=== PATIENT | female | born 1945 | race Caucasian/White ===

== ENCOUNTER 2019-05-06 07:07 | Outpatient (CLI) | payer MEDICARE, OTHER ==
[~2019-05-06] VITALS: Ht 162.6 cm; Wt 97.6 kg
[2019-05-06 07:41] VITALS: BP 151/61; Ht 162.6 cm; Wt 97.6 kg
[2019-05-06] MEDS ORDERED: TESSALON PERLE100 MG PO (07:47)
[2019-05-06] MEDS ORDERED: ZYLOPRIM300 MG PO (07:47)
[2019-05-06] MEDS ORDERED: BACLOFEN10 MG PO (07:47)
[2019-05-06] MEDS ORDERED: ASPIRIN81 MG PO (07:47)
[2019-05-06] MEDS ORDERED: TOPROL XL25 MG PO (07:48)
[2019-05-06] MEDS ORDERED: CENTRUM SILVER1 EAC3 PO (07:48)
[2019-05-06] MEDS ORDERED: BUMEX2 MG PO (07:48)
[2019-05-06] MEDS ORDERED: ENTRESTO 24 MG1 EACH PO (07:48)
[2019-05-06] MEDS ORDERED: OMEPRAZOLE20 M1 PO (07:49)
[2019-05-06] MEDS ORDERED: ALDACTONE25 MG PO (07:49)
[2019-05-06] MEDS ORDERED: TAMOXIFEN CITRA20 MG PO (07:49)
[2019-05-06] MEDS ORDERED: TRAZODONE HCL150 MG PO (07:49)
[2019-05-06 07:56] LABS: ANION GAP 10.8 mmol/L (8-16); CALCIUM 8.6 mg/dL (8.5-10.1); CARBON DIOXIDE 30.5 mmol/L (21.0-32.0); CREATININE - SERUM 1.4 mg/dL (0.6-1.3); POTASSIUM - SERUM 3.3 mmol/L (3.5-5.1)
--- NOTE | 2019-05-06 09:15 | NUR ---
0815 IV HAS BEEN STARTED TO LEFT AC X1 ATTEMPT WITH 22G IV CATH. DOBUTREX AND BUMEX DRIPS STARTED VIA PUMP PER ORDERS. PT ON COTTON WEIGHER, STARTING VSS- RIGHT BP - 102/85, HR IS 82, RESP WITH EASE ON ROOM AIR. PT STATES SHE HAS EATEN BREAKFAST THIS AM PRIOR TO ARRIVAL AND DENIES NEEDS AT THIS TIME. CALL LIGHT IN REACH, NO FAMILY AT BEDSIDE.
--- NOTE | 2019-05-06 09:19 | NUR ---
PT HAS VOIDED USING BSC, DENIES NEEDS AT THIS TIME. SINUS RHYTHM WITH OCCASIONAL PVC'S, DENIES ANY C/O CHEST PAIN. CALL LIGHT IN REACH.
--- NOTE | 2019-05-06 09:35 | NUR ---
PT SITITNG UP IN BED, DENIES ANY C/O CHEST PAIN, BP IS 126/58, HR 78. RESP WITH EASE ON ROOM AIR. CALL LIGHT IN REACH.
--- NOTE | 2019-05-06 10:16 | NUR ---
PT HAS VOIDED 400 CC CLEAR YELLOW URINE TO BS, DENIES ANY C/O. VSS, CALL LIGHT IN REACH.
--- NOTE | 2019-05-06 11:03 | NUR ---
PT HAS VOIDED 450 CC CLEAR YELLOW URINE TO [facility] [place] [facility], DENIES ANY C/O. VSS, IV MEDS INFUSING VIA PUMP PER ORDERS.
--- NOTE | 2019-05-06 12:16 | NUR ---
PT VOIDED 800 CC CLEAR YELLOW URINE TO BSC. DENIES ANY C/O. HAS KIKO LUNCH TRAY WITH NO C/O NAUSEA.
--- NOTE | 2019-05-06 13:33 | NUR ---
PT VOIDED 200 CC CLEAR YELLOW URINE TO BSC, DENIES ANY C/O OR NEEDS AT THIS TIME.
--- NOTE | 2019-05-06 15:13 | NUR ---
PT VOIDED 250 CC CLEAR YELLOW URINE TO BSC, DENIES ANY NEEDS AT THIS TIME. VSS, CALL LIGHT IN REACH.
--- NOTE | 2019-05-06 16:04 | NUR ---
VOIDED 200 CC CLEAR YELLOW URINE TO BSC, PT IS ALERT AND DENIES ANY C/O. INFUSION COMPLETE.
--- NOTE | 2019-05-06 16:38 | NUR ---
PT HAS VOIDED 250 CC CLEAR YELLOW URINE TO BSC, IV DC'D WITH CATH INTACT AND PT IS DRESSING FOR DC TO HOME.
--- NOTE | 2019-05-06 16:42 | NUR ---
POST INFUSION WEIGHT IS 212.4 POUNDS. PT ALERT AND DENIES ANY C/O. PT ESCORTED TO PRIVATE AUTO VIA WC BY NURSE WITH DRIVING HER HOME. PT IS ALERT AND DENIES ANY C/O UPON DC TO HOME. HAS JEREMIAH PERSONAL BELONGINGS,
== END 2019-05-06 16:50 | disposition home or self-care (01) ==
LOC: D.CATH 07:07
PROVIDERS: ATTEND Internal Medicine Interventional Cardiology
DX: I50.9 Heart failure, unspecified (principal); I42.9 Cardiomyopathy, unspecified

== ENCOUNTER 2019-05-25 06:58 | Outpatient (CLI) | payer MEDICARE, OTHER ==
[~2019-05-25] VITALS: Ht 162.6 cm; Wt 93.9 kg
[~2019-05-25 06:58] MED LIST: ALDACTONE25 MG PO; ASPIRIN81 MG PO; BACLOFEN10 MG PO; BUMEX2 MG PO; CENTRUM SILVER1 EAC3 PO; ENTRESTO 24 MG1 EACH PO; OMEPRAZOLE20 M1 PO; TAMOXIFEN CITRA20 MG PO; TESSALON PERLE100 MG PO; TOPROL XL25 MG PO; TRAZODONE HCL150 MG PO; ZYLOPRIM300 MG PO
--- NOTE | 2019-05-25 07:35 | NUR ---
PT PLACED ON MONITORS. IV STARTED W 22 GAUGE IN L UPPER ARM PER Hanna KINSEY RN. DOBUTREX AND BUMEX DRIP STARTED VIA PUMP PER ORDERS. ASSESSMENT COMPLETED. 02 ON VIA NC AT 3L, O2 SAT 90. CALL LIGHT IN REACH, DENIES OTHER NEEDS AT THIS TIME.
[2019-05-25 07:39] VITALS: BP 133/80; Ht 162.6 cm; Wt 93.9 kg
[2019-05-25 07:55] LABS: BASOPHILS 0.1 % (0-2); EOSINOPHILS 0.2 % (0-7); HEMATOCRIT 32.7 % (36.0-48.0); HEMOGLOBIN 10.6 g/dL (12-16); IMMATURE GRANULOCYTES 0.2 % (0-5); LYMPHOCYTES 4.8 % (15-50); MCH 29.8 pg (26.0-34.0); MCHC 32.4 g/dL (31.0-37.0); MCV 91.9 fL (80.0-100.0); MEAN PLATELET VOLUME 10.7 fL (7.4-10.4); NEUTROPHILS 87.7 % (40-80); PLATELET COUNT 156 10x3/uL (130-400); RBC 3.56 10x6/uL (4.00-5.40); RDW 16.5 % (11.5-14.5); WBC 13.5 10x3/uL (4.8-10.8)
[2019-05-25 08:07] LABS: ANION GAP 14.1 mmol/L (8-16); CALCIUM 8.9 mg/dL (8.5-10.1); CARBON DIOXIDE 26.7 mmol/L (21.0-32.0); CREATININE - SERUM 1.9 mg/dL (0.6-1.3); POTASSIUM - SERUM 3.8 mmol/L (3.5-5.1)
--- NOTE | 2019-05-25 08:18 | NUR ---
BREAKFAST TRAY SERVED. BP 116/48, HR 87, 02 SAT 94. PT DENIES NEEDS AT THIS TIME. CALL LIGHT IN REACH
--- NOTE | 2019-05-25 09:00 | NUR ---
PT SITTING UP IN BED, BP 124/80, HR 79, O2 SAT 97. PT FINISHED BREAKFAST TRAY, DENIES NEEDS AT THIS TIME. CALL LIGHT IN REACH.
--- NOTE | 2019-05-25 10:12 | NUR ---
PT RESTING SITTING UP IN BED. IV INFUSING VIA PUMP. BP 116/75, HR 77, 02 SAT 94%. AT BEDSIDE, CALL LIGHT IN REACH.
--- NOTE | 2019-05-25 10:23 | NUR ---
DR. DILLARD'S NURSE DUNCAN CALLED WITH [facility]AT[facility] LAB RESULT OF 1.9. SHE WILL RELAY THE INFORMATION TO DR.ST PAUL AND CALL BACK WITH ANY ORDERS.
--- NOTE | 2019-05-25 10:30 | NUR ---
[place] HAT EMPTIED OF 200CC URINE. BED LINEN CHANGED, PT BACK TO BED. BP 116/75, HR 81. CALL LIGHT IN REACH, AT BEDSIDE.
--- NOTE | 2019-05-25 11:24 | NUR ---
PT RESTING IN BED, IV INFUSING VIA PUMP PER ORDERS. REPOSITIONED PT FOR BACK DISCOMFORT. BP 128/65, HR 83, O2 SAT 93 ON 3L/NC. CALL LIGHT IN REACH, DENIES NEEDS AT THIS TIME.
--- NOTE | 2019-05-25 12:15 | NUR ---
PT SITTING UP ON SIDE OF BED, STATES BACK IS HURTING. 200CC URINE EMPTIED FROM BEDSIDE COMMODE. LUNCH TRAY ORDERED, PT DENIES ANY OTHER NEEDS AT THIS TIME.
--- NOTE | 2019-05-25 12:51 | NUR ---
PT FINISHED W LUNCH TRAY, VOIDED 200 CC IN [facility]. SHE IS ALSO HAVING LOOSE STOOLS. SHE IS SITTING UP ON SIDE OF BED, STATES IT HELPS HER BREATH BETTER. HR 88, BP 130/68, O2 SAT 92. CALL LIGHT IN REACH
--- NOTE | 2019-05-25 13:44 | NUR ---
PT SLEEPING, VSS. AT BEDSIDE. IV INFUSING VIA PUMP PER ORDERS. CALL LIGHT IN REACH
--- NOTE | 2019-05-25 14:08 | NUR ---
PT SITTING UP ON SIDE OF BED, STATES CAN BREATH BETTER THAT WAY. O2 SAT 88, O2 UP TO 4L/NC. BP 137/73, HR 90. IV INFUSING VIA PUMP PER ORDERS.
--- NOTE | 2019-05-25 14:30 | NUR ---
DR. DILLARD AT BEDSIDE. ORDERS RECEIVED TO CONSULT CASE MANAGMENT REGARDING HOME O2. CASE MANAGMENT CALLED TO COME AND SEE PATIENT.
--- NOTE | 2019-05-25 14:42 | NUR ---
150 CC CLEAR YELLOW URINE EMPTIED FROM [facility].
--- NOTE | 2019-05-25 14:42 | NUR ---
CASE MANAGMENT AT BEDSIDE DISCUSSING WITH PATIENT THE HOME O2.
--- NOTE | 2019-05-25 15:01 | NUR ---
[place] HAT EMPTIED, 150CC CLEAR YELLOW URINE. PT STILL HAVING LOOSE STOOLS. 02 SAT 88 ON 4L/NC. ENCOURAGED PT TO DRINK MORE WATER TO HELP WITH INCREASING URINE OUTPUT.
--- NOTE | 2019-05-25 15:53 | NUR ---
IV INFUSION COMPLETED. IV HEPLOCKED. PT TOLERATED PROCEDURE WELL. BP 118/63, HR 81, 02 SAT 94. WAITING ON CASE MANAGEMENT TO GET PORTABLE O2 FOR PT TO TAKE HOME. NO FURTHER OUTPUT AT THIS TIME. WILL MONITOR FOR 30 MIN BEFORE DISCHARGE
--- NOTE | 2019-05-25 16:11 | NUR ---
LUPE AT HOME FOOD PRODUCTION SUPERVISOR AT BEDSIDE, WORKING W PT REGARDING HOME O2 USE.
--- NOTE | 2019-05-25 16:20 | NUR ---
IV REMOVED W CATH INTACT, MONITORS REMOVED. PT WEIGHT 94.1KG/ 207.02LBS. PT UP TO DRESS FOR DISCHARGE. DISCHARGE INSTRUCTIONS REVIEWED.
--- NOTE | 2019-05-25 16:34 | NUR ---
PT DISCHARGED VIA WC TO PRIVATE VEHICLE WITH ALL BELONGINGS.
== END 2019-05-25 16:25 | disposition home or self-care (01) ==
LOC: D.CATH 06:58
PROVIDERS: ATTEND Internal Medicine Interventional Cardiology
DX: I50.9 Heart failure, unspecified (principal)

== ENCOUNTER 2019-05-26 15:59 | Inpatient (IN) | payer MEDICARE, OTHER ==
[2019-05-26] VITALS (16 sets, daily range): BP systolic 109–128; BP diastolic 63–81; BMI 36.4
[~2019-05-26] VITALS: Ht 162.6 cm; Wt 96.0 kg
--- NOTE | ~2019-05-26 | HEMODYNAMI ---
PATIENT:GAVIN SALVADOR MEDICAL RECORD: [id number] : 47 LOCATION:[facility] [id number] ADMISSION DATE: 05/26/19 Generatedon:05/28/201911:38 Patient name: GAVIN SALVADOR Patient #: [id number] SSN: D OB: 1945 Date of study: 05/28/2019 Page: Of Hemodynamic Procedure Report Patient Data Patient Demographics Procedure consent was obtained First Name: GAVIN Gender: Female Last Name: MADELEINE : 1945 Patient #: [id number] Age: 73 year(s) Race: Unknown Additional ID: [id number] Contact details [address]: [address] [place] [address] State: [place] City: [place] Zip code: [address] Past Medical History Allergies Allergen Reaction Date Comments Reported Other allergy 05/28/2019 STATINS, ADHESIVE Admission Admission Data Admission Date: 05/26/2019 Admission Time: 16:52 Room #: D.2308 Weight (lbs.): 211.64 Weight (kg.): 96 Lab Results Lab Result Date: 05/28/2019 Lab Result Time: 0:00 Biochemistry Name Units Result Min Max BUN mg/dl 40 --(----)-* 7 18 Creatinine mg/dl 1.7 --(----)-* 0.6 1.3 eGFR ml/min 31 *-(----)-- 90 120 NONAFRICAN CBC Name Units Result Min Max Hematocrit % 30.1 *-(----)-- 42 54 Hemoglobin g/dl 9.7 *-(----)-- 13.5 17.5 Procedure Procedure Types Cath Procedure Diagnostic Procedure LHC LHC w/Coronaries w/Grafts Procedure Description Procedure Date Procedure Date: 05/28/2019 Procedure Start Time: 11:24 Procedure End Time: 11:35 Procedure Staff Name Function Elroy Villalobos MD Performing Physician Natasha Ramos RT Monitor Jose Luis Marinelli RT Scrub Frances Abdi RT Scrub Brooklyn Mata RN Nurse Procedure Data Cath Procedure Fluoroscopy Diagnostic fluoroscopy Total fluoroscopy Time: 2.1 time: 2.1 min min Diagnostic fluoroscopy Total fluoroscopy dose: 612 dose: 612 mGy mGy Contrast Material Contrast Material Type Amount (ml) Isovue 300 83 Entry Location Entry Primary Successful Side Size Upsize Upsize Entry Closure Succes sful Closure Location (Fr) 1 (Fr) 2 (Fr) Remarks Device Remarks Femoral Right 5 Fr Exoseal artery Estimated blood loss: 5 ml Diagnostic catheters Device Type Used For End Catheter Placement MULTIPACK Pigtail 5 Fr Procedure catheter MULTIPACK JL 4.0 5Fr Procedure catheter MULTIPACK 3DRC 5Fr Procedure catheter DIAGNOSTIC AR2 MOD 5 Fr Procedure catheter ([id number]) Procedure Complications No complications Procedure Medications Medication Administration Route Dosage 0.9% NaCl I.V. 100 ml/hr Oxygen 100 Dobutamine I.V. drip 5 mcg/kg/min (500mg/250ml D5W) Bumex I.V. 1 mg Versed I.V. 2 mg Fentanyl I.V. 50 mcg Versed I.V. 1 mg Hemodynamics Rest HGB: 9.7 (g/dl) Heart Rate: 83 (bpm) Snapshots Pre Cath Intra NCS Post Cath Vital Signs Time Heart Resp SPO2 etCO2 NIBP Rhythm Pain Sedation Rate (ipm) (%) (mmHg) (mmHg) Status Level (bpm) 11:08:39 88 23 83 0 130/74(96) NSR 0 (11) 10(A) , No pain 11:18:07 90 23 87 0 116/57(85) NSR 0 (11) 10(A) , No pain 11:22:31 99 28 90 0 102/55(71) NSR 0 (11) 10(A) , No pain 11:26:57 89 26 89 0 94/39(54) NSR 0 (11) 10(A) , No pain 11:31:13 89 16 87 0 109/53(58) NSR 0 (11) 10(A) , No pain 11:36:29 88 16 88 0 110/67(80) NSR 0 (11) 10(A) , No pain Medications Time Medication Route Dose Verified Delivered Reason Notes Ef fectiveness by by 11:22:38 Fentanyl I.V. 50 mcg Elroy Villalobos MD Adolfo sedation RN 11:22:52 Versed I.V. 2 mg Elroy Brooklyn for Griselda Mata sedation RN 11:25:11 0.9% NaCl I.V. 100 ml/hr Elroy Brooklyn used for Griselda Mata prepared foods production team member 11:25:36 Oxygen Bipap 100% FiO2 Elroy Brooklyn used for pt on Griselda Mata procedure 100% RN FiO2 via Bipap upon arrival to 11:26:03 Dobutamine I.V. 5 Elroy Brooklyn Per infusing (500mg/250ml drip mcg/kg/min Griselda Mata physician upon D5W) RN arrival to 11:26:22 Bumex I.V. 1.0 mg Elroy Brooklyn used for infusing Griselda aMta procedure upon RN arrival to 11:29:11 Versed I.V. 1 mg Elroy Brooklyn for Griselda Mata anxiety dress finisher Log Time Note 10:49:04 Brooklyn Mata RN sent for patient. Start room use. 10:49:05 Diagnostic Cath status Urgent 10:49:06 Signed procedure consent form obtained from patient. 10:49:07 Time tracking: Regular hours (M-F 7:00 - 5:00) 10:49:10 Plan of Care:Hemodynamics will remain stable., Cardiac rhythm will remain stable., Comfort level will be maintained., Respiratory function will remain adequate., Patient/ family verbilizes understanding of procedure., Procedure tolerated without complication., Recovers from procedure without complications.. 10:51:33 Patient allergic to Other allergySTATINS, ADHESIVE 10:52:25 Lab Result : Creatinine 1.7 mg/dl 10:52:25 Lab Result : BUN 40 mg/dl 10:52:25 Lab Result : eGFR NONAFRICAN 31 ml/min 10:52:25 Lab Result : Hematocrit 30.1 % 10:52:25 Lab Result : Hemoglobin 9.7 g/dl 10:53:34 Patient Weight : 211.64 lbs 11:00:13 Patient received from ICU to CCL 1 Alert and oriented. Tansferred to table in Supine position. 11:00:13 Warm blankets applied, and myles hugger turned on for patient comfort. 11:00:14 Correct patient and procedure confirmed by team. 11:00:14 ECG and BP/O2 sat monitors applied to patient. 11:02:55 Pt arrived to from ICU w/ SpO2 88% on 100% FiO2 via Bipap. Dobutamine infusing @ 5mcg/kg/min, Bumex infusing at 1mg/hr. Pt restless and writhing in bed but denies any pain at this time. Pt unable to answer verbally d/t Bipap but will able to answer yes/no via head nod. VITA EtCO2 d/t Bipap. aware of sats. All other VSS. 11:07:15 Vital chart was started 11:07:17 Baseline sample Acquired. 11:13:57 PT ARRIVED FROM ICU ON BIPAP MACHINE. 11:15:13 Baseline sample Acquired. 11:15:19 Rhythm: sinus rhythm 11:15:21 Full Disclosure recording started 11:15:25 H&P Date Dictated: 05/28/2019 Within 30 days and on chart.. 11:15:27 Pre-procedure instructions explained to patient. 11:15:28 Pre-op teaching completed and patient verbalized understanding. 11:15:30 Family in patients room. 11:15:32 Patient NPO since Midnight. 11:15:34 Is the patient allergic to Iodine/contrast media? No. 11:15:47 IV started by Brooklyn Mata RN inright forearm with a 22 gauge IV catheter with 0.9% NaCl at KVO. 11:15:50 Lab results completed and on chart. 11:16:26 PT ON BIPAP MACHINE, UNABLE TO ANSWER QUESTIONS. 11:16:33 Pre procedure: right dorsailis pedis pulse 1+ Palpable, but thready & weak; easily obliterated 11:16:35 Patient pain scale 0/10 ?. 11:16:39 Right groin area was prepped with chlora-prep and draped in sterile fashion 11:16:40 Alarms reviewed by R. N. 11:16:41 Sharps counted by scrub and verified by R.N. 11:19:46 Use device set Femoral Dx 11:19:47 ACIST Syringe (21439) opened to sterile field. 11:19:48 Bag Decanter (2002) opened to sterile field. 11:19:49 ACIST Manifold (75723) opened to sterile field. 11:19:49 ACIST Hand Control (44219) opened to sterile field. 11:19:50 Tegaderm 4 x 4 (1626W) opened to sterile field. 11:19:52 Medline Cath Pack ([id number]) opened to sterile field. 11:19:53 DIAGNOSTIC Multipack 5Fr catheter set (LD4514) opened to sterile field. 11:19:54 SHEATH 5FR [place] (NZG132) opened to sterile field. 11:19:55 EMERALD Guide Wire (930-604) opened to sterile field. 11::33 --------ALL STOP TIME OUT------ 11::33 Final Timeout: patient, procedure, and site verified with staff and physician. All members of the team are in agreement. 11::34 Right groin site verified by team. 11::38 Fire Safety Assessment: A--An alcohol-based skin anteseptic being used preoperatively., C--Open oxygen or nitrous oxide is being used., D--An ESU, laser, or fiber-optic light is being used. 11:21:45 Physical assessment completed. ASA score P 4 - A patient with severe systemic disease that is a constant threat to life as per Elroy Villalobos MD. 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 11::55 Maximum allowable contrast does (3.7 X eGFR X 0.75)86 ml. 11:21:58 Sedation plan: IV Moderate Sedation Medication:Versed, Fentanyl 11:22:38 Fentanyl 50 mcg I.V. was administered by Brooklyn Mata RN; for sedation; ::52 Versed 2 mg I.V. was administered by Brooklyn Mata RN; for sedation; 11:24:21 Zero performed for pressure channel P1 11:24:27 Zero performed for pressure channel P1 11:24:32 Zero performed for pressure channel P1 11:24:39 Zero performed for pressure channel P1 11:24:42 Procedure started. 11:24:47 Local anesthetic to right femoral artery with Lidocaine 2% by Elroy Villalobos MD.INITIAL ACCESS ONLY 11:24:56 Zero performed for pressure channel P1 11:25:06 A 5 Fr sheath was inserted into the Right Femoral artery 11:25:11 0.9% NaCl 100 ml/hr I.V. was administered by Brooklyn Mata RN; used for procedure; ::36 Oxygen 100% FiO2 Bipap was administered by Brooklyn Mata RN; used for procedure; pt on 100% FiO2 via Bipap upon arrival to 11::36 A MULTIPACK Pigtail 5 Fr catheter was advanced over the wire and used for Procedure. 11::38 LV gram done using HURTADO 11:: Injector settings: Ml/sec: 10, Volume: 20, 11::57 EF : 20 % 11::59 Catheter removed. 11:26:03 Dobutamine (500mg/250ml D5W) 5 mcg/kg/min I.V. drip was administered by Brooklyn Mata RN; Per physician; infusing upon arrival to 11::07 A MULTIPACK JL 4.0 5Fr catheter was advanced over the wire and used for Procedure. 11::22 Bumex 1.0 mg I.V. was administered by Brooklyn Mata RN; used for procedure; infusing upon arrival to 11::07 LCA angiography performed. 11:27:08 Catheter removed. 11:27:19 A MULTIPACK 3DRC 5Fr catheter was advanced over the wire and used for Procedure. 11:28:34 MUNGUIA to LAD angiography performed. 11:28:49 RCA angiography performed. 11:28:52 Catheter removed. 11::57 A DIAGNOSTIC AR2 MOD 5 Fr catheter ([id number]) was advanced over the wire and used for Procedure. 11:29:11 Versed 1 mg I.V. was administered by Brooklyn Mata RN; for anxiety; 11:29:37 SVG to Circ angiography performed. 11:29:49 SVG to RCA angiography performed. 11:29:55 Catheter removed. 11:29:58 EXOSEAL 5Fr (EX500) opened to sterile field. 11:30:26 Sheath removed intact; hemostasis achieved with Exoseal to the Right Femoral artery. 11:30:33 Procedure ended.(Physican Out) 11:31:11 Fluoroscopy time 02.10 minutes. :31:14 Fluoroscopy dose: 612 mGy 11:31:14 Flurop Dose total: 612 11:31:17 Contrast amount:Isovue 300 83ml. 11:31:19 Sharps counted by scrub and verified by R.N. 11:31:21 Post-op/insertion site Right Femoral artery dressed using a 4 x 4 and Tegaderm. 11:31:37 Post-procedure physical assessment completed. ASA score P 4 - A patient with severe systemic disease that is a constant threat to life as per Elroy Villalobos MD. 11:31:40 Post procedure rhythm: unchanged. 11:31:42 Estimated blood loss: 5 ml 11:31:43 Post procedure instruction explained to patient.Patient verbalizes understanding. 11:32:02 Patient needs reinforcement of post procedure teaching. 11:32:22 Procedure type changed to Cath procedure, Diagnostic procedure, LHC, LHC w/Coronaries w/Grafts 11:32:37 Procedure and supply charges have been captured, reviewed, submitted and are correct. 11:32:40 Procedure Complication : No complications 11:35:44 Vital chart was stopped 11:35:46 Report given to ICU. 11:35:48 See physician's report for complete and final results. 11:35:51 Patient transfered to ICU with Bed. 11:35:53 Procedure ended. 11:35:53 Full Disclosure recording stopped 11:35:56 End room use (Document Last) Device Usage Item Name Manufacture Quantity Catalog Hospital Part Current Minimal L ot# / Number Charge Number Stock Stock Serial# Code ACIST Acist 1 43347 137762 598373 764562 20 Syringe Medical (40368) Systems Inc Bag Microtek 1 629192 63510 254333 5 Decanter Medical Inc. () ACIST Acist 1 69263 082755 109590 999173 5 Manifold Medical (79208) Systems Inc ACIST Hand Acist 1 47462 450547 573125 713911 5 Control Medical (30391) Systems Inc Tegaderm 4 3M 1 1626W 173071 323945 037877 5 x 4 (1626W) Medline Medline 1 [id number] 286103 65833 096596 5 Cath Pack ([id number]) DIAGNOSTIC Cardinal 1 [id number] 188874 45212 354080 30 Anobit Technologies 5Fr catheter set (HN0699) SHEATH 5FR Terumo 1 RMX353 353694 774340 674202 5 [place] (TAP126) EMERALD Cardinal 1 502-455 689312 418318 172296 5 Guide Wire Information Gateway (502455) MULTIPACK Cardinal 1 785386 5 Pigtail 5 Health Fr catheter MULTIPACK Cardinal 1 919805 5 JL 4.0 5Fr Health catheter MULTIPACK Cardinal 1 095661 5 3DRC 5Fr Health catheter DIAGNOSTIC Cardinal 1 [id number] 760284 242453 001501 20 AR2 MOD 5 Health Fr catheter ([id number]) EXOSEAL 5Fr Cardinal 1 EX500 637291 266652 812573 10 (EX500) Health Signature Audit [place] Stage Time Signature Unsigned Intra-Procedure 05/28/2019 Natasha Ramos 11:38:04 AM RT(R) Signatures Monitor : Natasha Ramos Signature : RT Date : Time : [place] [id number]
[2019-05-26 16:34] LABS: BASOPHILS 0 % (0-2); EOSINOPHILS 0 % (0-7); HEMATOCRIT 33.9 % (36.0-48.0); IMMATURE GRANULOCYTES 0.3 % (0-5); MCHC 32.4 g/dL (31.0-37.0); MCV 92.4 fL (80.0-100.0); MEAN PLATELET VOLUME 10.6 fL (7.4-10.4); MONOCYTES 4.2 % (2-11); NEUTROPHILS 92.5 % (40-80); PLATELET COUNT 184 10x3/uL (130-400); RBC 3.67 10x6/uL (4.00-5.40); RDW 16.4 % (11.5-14.5)
[2019-05-26 16:35] LABS: WBC 18.1 10x3/uL (4.8-10.8)
--- NOTE | 2019-05-26 16:45 | NUR ---
PT HAS RED/EXCORIATED BUTTOCKS AREA AND RED RASH TO RIGHT GROIN AREA
--- NOTE | 2019-05-26 16:45 | NUR ---
ASSITED PT UP TO BSC. GAIT STEADY. PT BECAME VERY DYSPNIC WHILE UP. ASSITED BACK TO BED IN POSITION OF COMFORT, AFTER SEVERAL MINURTES RESP IMPROVED.
[2019-05-26 16:47] LABS: APTT 22.3 SECONDS (22.8-39.4); INR 1.39 (0.85-1.17); PROTIME 16.5 SECONDS (11.6-15.0)
[2019-05-26 16:51] LABS: ALBUMIN 2.9 g/dL (3.4-5.0); ALKALINE PHOSPHATASE 94 U/L (46-116); ALT (SGPT) 40 U/L (10-68); BILIRUBIN - TOTAL 1.17 mg/dL (0.2-1.3); CALC OSMOLALITY 280 mosm/kg (275-300); CALCIUM 8.7 mg/dL (8.5-10.1); CARBON DIOXIDE 29.9 mmol/L (21.0-32.0); CHLORIDE - SERUM 95 mmol/L (98-107); GLUCOSE 200 mg/dL (74-106); POTASSIUM - SERUM 3.7 mmol/L (3.5-5.1); PROTEIN - SERUM 7.8 g/dL (6.4-8.2); SODIUM 132 mmol/L (136-145); UREA NITROGEN 40 mg/dL (7-18); eGFR NON AFRICAN AMERICAN 26 mL/min (90-120)
[2019-05-26 17:07] LABS: CKMB 2.4 U/L (0.0-3.6); CREATINE KINASE 88 UL (21-215); PRO BNP 29577 pg/mL (0-125)
[2019-05-26 17:12] LABS: TROPONIN-I 0.218 ng/mL (0.000-0.060)
--- NOTE | 2019-05-26 18:01 | NUR ---
RT AT FOR REPEAT ABG'S
--- NOTE | 2019-05-26 18:10 | NUR ---
REPORT TO [facility] FIELD BY SBAR FORMAT
--- NOTE | 2019-05-26 18:30 | NUR ---
RECEIVED PT FROM ER AT THIS TIME. PT ON NON REBREATHER SATURATING AROUND 90%. BP AND HR STABLE. AWAKE ALERT AND ORIENTED. SAMAYOA CATH INTACT. DOBUTAMINE DRIP AT 5MCG/KG/MIN, BUMEX DRIP AT 10ML/HR, AND VANCOMYCIN INFUSING THROUGH RIGHT HAND PIV AND LEFT AC PIV. WILL CHECK ORDERS AND CONTINUE TO MONITOR
--- NOTE | 2019-05-26 18:41 | NUR ---
[place] INFUSING VIA PUMP UPON TRANSPORT TO ICU
--- NOTE | 2019-05-26 18:41 | NUR ---
TRANSPORTED TO ICU #[id number] VIA STRETCHER, DOBUTAMINE GTT, BUMEX GTT AND VANCOMYCIN INFUSING UPON TX TO ROOM. CONDITION STABLE. TRANSPORTED WITH RN, AND O2
--- NOTE | 2019-05-26 19:13 | NUR ---
REPORT RECEIVED, SHIFT ASSESSMENT COMPLETED PER FLOW SHEET. AAOX4. 100% NON-REBREATHER MASK ON, O2 SAT 93%. LT THIGH DRESSING C/D/I, PATIENT STATES THAT SHE SEES "DR. VAUGHAN [facility]" AND THAT SHE "PUTS PRESCRIBED MEDICATION ON IT" BUT IS UNABLE TO TELL ME AT THIS TIME WHAT TYPE OF MEDICATION, SHE REFUSES FOR ME TO REMOVE ANY DRESSING AT THIS TIME AND SHE STATES "I HAVE MEDICATION THAT I HAVE TO PUT IN THERE AND I DO NOT HAVE IT WITH ME AND CANNOT TELL YOU WHAT IT IS, THE DRESSING HAS BEEN CHANGED ALREADY." SHE DID ALLOW ME TO PULL BACK THE TOP DRESSING AND WAS ABLE TO NOTE A SMALL INCISION SITE THAT WAS COVERED WITH A DRESSING. SHE STATES THAT SHE GOT THE WOUND BACK WHEN SHE HAD "OPEN HEART SURGERY LAST YEAR." SEE FLOW SHEET FOR COMPLETE ASSESSMENT. WILL CONTINUE TO MONITOR. CALL LIGHT WITHIN REACH.
--- NOTE | 2019-05-26 20:17 | NUR ---
FAMILY AT BEDSIDE, QUESTIONS ANSWERED, UPDATE GIVEN.
--- NOTE | 2019-05-26 21:02 | NUR ---
PATIENT O2 SAT 84-88% ON 100% NON-REBREATHER, RESPIRATIONS LABORED. CALLED DR. REECE WHO IS ASSISTANT CHIEF TRAIN DISPATCHER FOR DR. MILLS. WILL WAIT FOR CALL BACK.
--- NOTE | 2019-05-26 21:03 | NUR ---
DR. REECE RETURNED CALLED, INFORMED HIM OF PATIENT'S ADMISSION. REVIEWED IV DRIPS, PREVIOUS MEDICAL HISTORY, VITAL SIGNS, URINE OUTPUT, AND PATIENT'S CURRENT STATUS, INFORMED HIM OF O2 SAT 84-88% ON NON-REBREATHER. ORDERS RECEIVED TO CONSULT PULMONOLOGY FOR BIPAP ORDER.
--- NOTE | 2019-05-26 21:05 | NUR ---
CALLED DR. ISBELL FOR PULMONOLOGY CONSULT. WILL WAIT FOR CALL BACK.
--- NOTE | 2019-05-26 21:20 | NUR ---
DR. ISBELL RETURNED CALL, ORDERS RECEIVED FOR BIPAP 01/07, FI02 40%, AND TO TITRATE FIO2 UP NEEDED FOR O2 SAT >92%.
--- NOTE | 2019-05-26 21:24 | NUR ---
INFORMED RT ABOUT BIPAP ORDERS PER DR. ISBELL.
--- NOTE | 2019-05-26 21:35 | NUR ---
RT AT BEDSIDE SETTING UP BIPAP. FIO2 INCREASED TO 85% PER RT TO MAINTAIN O2 SAT >92% PER DR. ISBELL'S ORDERS. WILL CONTINUE TO MONITOR. EXPLAINED TO PATIENT IMPORTANCE OF BIPAP, SHE VERBALIZED UNDERSTANDING. CALL LIGHT WITHIN REACH. WILL CONTINUE TO MONITOR.
--- NOTE | 2019-05-26 23:24 | NUR ---
REASSESSMENT COMPLETED PER FLOW SHEET, SEE FOR DETAILS. PPP. FOLLOWING COMMANDS. AAOX4. DENIES NEEDS AT THIS TIME. CALL LIGHT WITHIN REACH. WILL CONTINUE TO MONITOR.
[2019-05-27] VITALS (22 sets, daily range): BP systolic 110–138; BP diastolic 54–93; Ht 162.6 cm; Wt 96.0 kg
--- NOTE | 2019-05-27 01:00 | NUR ---
DENIES NEEDS AT THIS TIME. CALL LIGHT WITHIN REACH. NO ACUTE CHANGES NOTED. WILL CONTINUE TO MONITOR.
--- NOTE | 2019-05-27 03:00 | NUR ---
REASSESSMENT COMPLETED PER FLOW SHEET, SEE FOR DETAILS. BIPAP AT 80% PER RT, O2 SAT 97%. DENIES NEEDS. WILL CONTINUE TO MONITOR. CALL LIGHT WITHIN REACH.
[2019-05-27 04:06] LABS: BASOPHILS 0 % (0-2); EOSINOPHILS 0 % (0-7); HEMATOCRIT 29.7 % (36.0-48.0); HEMOGLOBIN 9.6 g/dL (12-16); IMMATURE GRANULOCYTES 0.3 % (0-5); MCH 29.8 pg (26.0-34.0); MCHC 32.3 g/dL (31.0-37.0); MCV 92.2 fL (80.0-100.0); MEAN PLATELET VOLUME 10.5 fL (7.4-10.4); MONOCYTES 5.7 % (2-11); RBC 3.22 10x6/uL (4.00-5.40); RDW 16.5 % (11.5-14.5); WBC 14.7 10x3/uL (4.8-10.8)
[2019-05-27 04:11] LABS: PLATELET COUNT 137 10x3/uL (130-400)
[2019-05-27 04:27] LABS: ANION GAP 10.4 mmol/L (8-16); CALCIUM 8.2 mg/dL (8.5-10.1); CARBON DIOXIDE 31.2 mmol/L (21.0-32.0); CREATININE - SERUM 1.9 mg/dL (0.6-1.3); MAGNESIUM - SERUM 1.7 mg/dL (1.8-2.4); PHOSPHOROUS 3.7 mg/dL (2.5-4.9); POTASSIUM - SERUM 3.6 mmol/L (3.5-5.1)
--- NOTE | 2019-05-27 05:00 | NUR ---
COMPLETE BED BATH GIVEN, COMPLETE BED LINEN CHANGE PROVIDED. SAMAYOA CARE PROVIDED. REPOSITIONED IN BED. CALL LIGHT WITHIN REACH. WILL CONTINUE TO MONITOR.
--- NOTE | 2019-05-27 07:00 | NUR ---
RECEIVED REPORT FROM NIGHT NURSE. PT RESTING IN BED ON BIPAP 15/8 WITH FIO2 80% SATURATING 97%. PT IS AWAKE AND ALERT AND ORIENTED. BP AND HR STABLE ON DOBUTAMINE DRIP AT 5MCG. NORMAL SINUS RHYTHM. BUMEX DRIP INFUSING. SAMAYOA IN PLACE. WILL CONTINUE TO MONITOR
--- NOTE | 2019-05-27 09:17 | NUR ---
ADMNISTERED PRN AND PO MEDS. PATIENT DESATURATED DOWN TO 68% WHILE BIPAP OFF. RESUMED TO 96% ONCE BACK ON. INSTRUCTED TO FOCUS ON BREATHING AND TO NOT TALK NEXT TIME BIPAP MUST BE REMOVED.
--- NOTE | 2019-05-27 14:43 | NUR ---
Pt has had a history of nonhealing surgical incisions on bilateral thighs. The left thigh is scarred but healed. The right thigh has a scar with a 1cm scabbed area. No drainage or odor is noted. Wound care will monitor as needed.
--- NOTE | 2019-05-27 15:25 | NUR ---
PATIENT PLACED ON VAPOTHERM 14L AT 100% AT THIS TIME. O2 SAT STABLE.
--- NOTE | 2019-05-27 19:30 | NUR ---
ASSESSED AT THE BEGINNING OF THE SHIFT. PT WAS ALERT AND ORIENTED, ABLE TO VERBALIZE NEEDS BUT WAS ON BIPAP AT THAT TIME. SHE IS VERY EASY TO GET ANXIOUS AND RESP IS LETTING HER OFF BIPAP FOR DINNER, THEN PLACING HFER BACK ON AT 2100.
--- NOTE | 2019-05-27 21:29 | NUR ---
PT WAS GIVEN MORPHINE FOR PAIN AND ATIVAN ORDERED FOR ANXIETY AFTER EATING. AFTER ABOUT 30 MINUTES SHE BECAME VERY CONFUSED AND WAS TAKING OFF HER BIPAP. ABG'S WERE DONE AND ORDERS NOTED. IT HAS BEEN HARD TO KEEP THE BIPAP IN PLACE AND WE WILL BEF PUTTING PT IN RESTRAINTS WITH ORDERS.
[2019-05-27 21:53] LABS: BASOPHILS 0.1 % (0-2); EOSINOPHILS 0.1 % (0-7); HEMATOCRIT 30.1 % (36.0-48.0); HEMOGLOBIN 9.7 g/dL (12-16); IMMATURE GRANULOCYTES 0.4 % (0-5); LYMPHOCYTES 2.1 % (15-50); MCH 29.7 pg (26.0-34.0); MCHC 32.2 g/dL (31.0-37.0); NEUTROPHILS 93.3 % (40-80); PLATELET COUNT 140 10x3/uL (130-400); RBC 3.27 10x6/uL (4.00-5.40); RDW 16.3 % (11.5-14.5); WBC 14.9 10x3/uL (4.8-10.8)
--- NOTE | 2019-05-27 22:00 | NUR ---
ABGS WERE DONE AND POTASSIUM WAS HIGH. LAB WAS ORDERED TO COMFIRM POTASSIUM AND IT DID NOT SHOW THE SAME VALUES. THESE VALUES WERE MUCH LOWER.
[2019-05-27 22:17] LABS: ALBUMIN 2.3 g/dL (3.4-5.0); ANION GAP 11.7 mmol/L (8-16); BILIRUBIN - TOTAL 0.85 mg/dL (0.2-1.3); CARBON DIOXIDE 28.6 mmol/L (21.0-32.0); CREATININE - SERUM 1.7 mg/dL (0.6-1.3); MAGNESIUM - SERUM 1.6 mg/dL (1.8-2.4); POTASSIUM - SERUM 3.3 mmol/L (3.5-5.1); PROTEIN - SERUM 6.9 g/dL (6.4-8.2)
--- NOTE | 2019-05-27 22:50 | NUR ---
ATTEMPTED TO REMOVE RESTRAINTS BUT PT COULD NOT REMEMBER TO LEAVE HER BIPAP ALONE. WILL CONTINURE TO TRY TO REMOVE RESTRAINTS FOR COMFORT. PULLED UP IN BED ANDF REASSURED THAT WE WOULD KEEP TRYING
[2019-05-28] VITALS (12 sets, daily range): BP systolic 88–133; BP diastolic 47–75
--- NOTE | 2019-05-28 | NUR ---
PT HAS BEEN VERY CONFUSED AND EVEN THOUGH SHE WILL TELL YOU THAT SHE WILL LEAVE HER IV LINES FOLEL AND BIPAP ALONE SHE IS NOT LEAVING THEM ALONE. WE HAVE HAD TO INTERVENE TO KEEP HER FROM REMOVING HER BIPAP AND SHE HAD PULLED HER SAMAYOA LOOSE FROM THE SECURE SITE. SHE HAS NOW BEEN GIVEN ATIVAN ORDERED TO HOPEFULLY GIVE HER SOME REST. WILL CONTINUE TO MONITOR
--- NOTE | 2019-05-28 00:38 | NUR ---
RESTING QUIET WITH NO DISTRESS, BIPAP IN PLACE AND SAT STAYING IN THE 90'S. PT CHECKED BY RESPIRATORY FREQUENTLY. PT HAS BEEN WEARING HER SCD'S ALL SHIFT AND WE HAVE HER ARMS UP ON PILLOWS FOR COMFORT.
--- NOTE | 2019-05-28 02:09 | NUR ---
PT WAS GIVEN A COMPLETE BED BATH WITH HIBICLENS AND ORAL CARE WAS DONE. SAMAYOA CARE WAS DONE PER POLICY. PT BECAME VERY COMBATIVE AND RECEIVED ATIVAN ORDERED AGAIN. RESP. TECH AT BEDSIDE TALKING TO PATIENT. O2 AT 92%.
--- NOTE | 2019-05-28 04:13 | NUR ---
AFTER PT RECAEIVED ATIVAN EARLIER SHE DID NOT CALM DOWN FOR ABOUT 30 MIN. NOW SHE IS ASLEEP AND RESTING WELL. HER COLOR IS GOOD AND IT SEEMS SHE IS NOT HAVING MUCH STRUGGLE TO BREATH.
--- NOTE | 2019-05-28 06:00 | NUR ---
PT IS RESTING QUIET AT THIS TIME BUT ABOUT 30 MINUTES EARLIER SHE WAS RESTLESS AND TRYING TO GET HER ARMS LOOSE. WE HAVE TRIED TO LEAVE OFF THE RESTRAINTS BUT SHE WILL IMMEDIATELY START PULLING OFF HER BIPAP AND THEN SHE DROPS DOWN TO THE 70S VERY QUICKLY.
--- NOTE | 2019-05-28 07:15 | NUR ---
PATIENT RECIEVED FROM PREVIOUS SHIFT RESTING WITH EYES CLOSE,DROWSEY BUT AROUSED EASILY TO VOICE. PATIENT RESTLESS WITH RESTRAINTS IN PLACE. BIPAP IN PLACE, CL IN REACH
--- NOTE | 2019-05-28 09:00 | NUR ---
PATIENT REPOSITIONED FOR COMFORT, FAMILY AT BEDSIDE WITH RESTRAINTS OFF AT THIS TIME.
--- NOTE | 2019-05-28 09:52 | NUR ---
Nutrition follow-up: Pt remains SOB on BIPAP Pt has AHA diet ordered; however, po intake poor due to breathing issues Per pulmonary, pt may need to intubated; will need TF started immediately. Recommend Pulmocare @ 25 ml/hr with increase to goal rate of 50 ml/hr; 100 ml H2O flsuh q 4 hours. labs reviewed Wt: 211# RDN following.
--- NOTE | 2019-05-28 09:59 | NUR ---
PO MEDS HELD AT THIS TIME DUE TO PATIENT NOT STABLE ENOUGH TO REMOVE FROM BI-PAP
--- NOTE | 2019-05-28 10:05 | NUR ---
BILAT SOFT WRIST RESTRAINTS PLACED, FAMILY LEAVING ROOM AT THIS TIME. RESPIRATIONS LABORED AT 24, BI-PAP IN PLACE.
--- NOTE | 2019-05-28 10:59 | NUR ---
PATIENT PRE-OP WITH NS, NITRO-BID, AND BENADRYL. UNABLE TO ADMINISTER VALIUM DUE TO PATIENT UNABLE TO TOLERATE
--- NOTE | 2019-05-28 11:51 | NUR ---
PT BACK FROM [facility] AT THIS TIME. VSS. HR 88 NSR. O2 SAT 97% RR 26. BP 119/61 FAMILY AT BEDSIDE. AWAITING DR MILLS ALL QUESTIONS ANSWERED.
--- NOTE | 2019-05-28 11:55 | NUR ---
REASSESSMENT COMPLETE PER FLOW SHEET. VSS. PT CONFUSED X3 ATTEMPT TO REORIENTED. FAMILY AT BEDSIDE.
--- NOTE | 2019-05-28 12:00 | MORECARE ---
CASE MANAGEMENT DISCHARGE SUMMARY PATIENT: GAVIN SALVADOR UNIT: [id number] ADM DATE: 05/26/19 AGE: 73 : 46 SEX: F ROOM/BED: D.2308 AUTHOR: GUS CARSON PHYSICIAN: REFERRING PHYSICIAN: HILARY MILLS MD DATE OF SERVICE: 05/28/19 Discharge Plan Patient Name: GAVIN SALVADOR Facility: [facility]:[place] : 1945 Planned Disposition: Anticipated Discharge Date: Discharge Date: Expected LOS: Initial Reviewer: [email or web address] Initial Review Date: 05/28/2019 Generated: 05/28/19 1:00 pm Comments DCP- Discharge Planning Updated by [email or web address]: Irene Briggs on 05/28/19 8:[address] Patient Name: GAVIN SALVADOR Encounter No: [id number] : 1945 Primary Insurance: MEDICARE A & B Blue Line Operator: : RENETTA Note: Continue BiPAP 15/8-60 percent FiO2, and titrate FiO2 down to keep SaO2 more than 92%. Bumex, and dobutamine drip. I doubt this is pneumonia, and I will discontinue antibiotics for now. Follow blood cultures, and pro-calcitonin. Elevated proBNP up to 29,000. DVT prophylaxis Cardiac catheter decision per cardiology once MICHELL improves. May need intubation and mechanical ventilation if above measures fail. PRN Ativan for anxiety D/w family at bedside Irene Briggs DCPIA - Discharge Planning Initial Assessment Updated by [email or web address]: Dorothy Castillo on 05/28/19 11:57 am * Is the patient Alert and Oriented? No * PCP [facility] * [facility] * Preadmission Environment Home with Family * List name and contact numbers for known caregivers / representatives who currently or will assist patient after discharge: COURT, , * Has this patient been hospitalized within the prior 30 days at any hospital? No Patient Name: GAVIN SALVADOR Page [id number] at 1200 All edits/amendments must be made on the electronic document DICTATION DATE: 05/28/19 1151 INSTRUCTOR WATCH ASSEMBLY: LILIAN 05/28/19 1159 RPT#: [id number] DC DATE: STATUS: ADM IN [facility] [address] [place] [address] END OF REPORT
--- NOTE | 2019-05-28 12:06 | MORECARE ---
CASE MANAGEMENT DISCHARGE SUMMARY PATIENT: GAVIN SALVADOR UNIT: [id number] ADM DATE: 05/26/19 AGE: 73 : 46 SEX: F ROOM/BED: D.230 AUTHOR: YAMILETH,DOC PHYSICIAN: REFERRING PHYSICIAN: HILARY MILLS MD DATE OF SERVICE: 05/28/19 Discharge Plan Patient Name: GAVIN SALVADOR Facility: [facility]:[place] : 1945 Planned Disposition: Anticipated Discharge Date: Discharge Date: Expected LOS: Initial Reviewer: [email or web address] Initial Review Date: 05/28/2019 Generated: 05/28/19 1:06 pm Comments DCP- Discharge Planning Updated by [email or web address]: Dorothy Castillo on 05/28/19 11:[address] Patient Name: GAVIN SALVADOR Admission Status: ER Accout number: [id number] Admission Date: 05-26-2019 : 1945 Admission Diagnosis:HYPERTENSIVE HEART DISEASE WITH HEART FAILURE Attending: LING MILLS Current LOS: 2 Anticipated DC Date: Planned Disposition: Primary Insurance: MEDICARE A & B Discharge Planning Comments: CM MET WITH PATIENT BECAUSE SHE IS ON BIPAP. STATES HIS ISN'T DOING VERY WELL AND WOULD LIKE TO TALK WITH ME LATER. HE STATES DR MILLS IS COMING TO TALK TO HIM AND THEN HE CAN MEET WITH ME. CM WILL CHECK BACK WITH . HE IS VERY CONCERNED SHE MAY NOT MAKE IT THROUGH THE DAY. CM WILL CONTINUE TO FOLLOW AND ASSIST WITH DC PLANNING/NEEDS. Railroad Conductor: Dorothy Castillo DCP- Discharge Planning Updated by [email or web address]: Irene Briggs on 05/28/19 8:[address] Patient Name: GAVIN SALVADOR Encounter No: [id number] : 1945 Primary Insurance: MEDICARE A & B Railroad Conductor: : RENETTA Note: Continue BiPAP 15/8-60 percent FiO2, and titrate FiO2 down to keep SaO2 more than 92%. Bumex, and dobutamine drip. I doubt this is pneumonia, and I will discontinue antibiotics for now. Follow blood cultures, and pro-calcitonin. Elevated proBNP up to 29,000. DVT prophylaxis Cardiac catheter decision per cardiology once MICHELL improves. May need intubation and mechanical ventilation if above measures fail. PRN Ativan for anxiety D/w family at bedside Irene Briggs DCPIA - Discharge Planning Initial Assessment Updated by [email or web address]: Dorothy Castillo on 05/28/19 11:57 am * Is the patient Alert and Oriented? No * PCP [facility] * [facility] * Preadmission Environment Home with Family * List name and contact numbers for known caregivers / representatives who currently or will assist patient after discharge: COURT, , * Has this patient been hospitalized within the prior 30 days at any hospital? No Last DP export: 05/28/19 11:00 a Patient Name: GAVIN SALVADOR Page [phone] at 1206 All edits/amendments must be made on the electronic document DICTATION DATE: 05/28/19 1206 MUCK FARMER: LILIAN 05/28/19 1206 RPT#: [id number] DC DATE: STATUS: ADM IN [facility] [address] [place] [address] END OF REPORT
--- NOTE | 2019-05-28 12:09 | NUR ---
DR. MILLS AT BEDSIDE, UPDATE GIVEN TO FAMILY, DECISION MADE FOR PT TO BE MADE A DNR, WAITING ON DAUGHTER FROM [place] TO MAKE COMFORT CARE
--- NOTE | 2019-05-28 12:30 | NUR ---
PT REMOVED FROM BIPAP, PLACED ON 2L NC PER FAMILY REQUEST, DR. MILLS NOTIFIED, FAMILY AT BEDSIDE
--- NOTE | 2019-05-28 12:42 | NUR ---
PT ASYSTOLE ON THE MONITOR, FAMILY AT BEDSIDE
--- NOTE | 2019-05-28 12:45 | NUR ---
PRONOUNCED BY DR. MILLS
--- NOTE | 2019-05-28 12:55 | NUR ---
IVETTE NOTIFIED OF PT
--- NOTE | 2019-05-28 13:05 | NUR ---
HOME NOTIFIED OF PT
--- NOTE | 2019-05-28 13:20 | NUR ---
POST MORTEM CARE PERFORMED
--- NOTE | 2019-05-28 13:24 | NUR ---
PATIENT TRANSFERED TO ROOM 2224 MED/SURG FLOOR
--- NOTE | 2019-05-28 13:24 | NUR ---
PATIENT TRANSFERED TO ROOM 2224 MED/SURG FLOOR
--- NOTE | 2019-05-28 14:32 | NUR ---
HOME HERE FOR PT
--- NOTE | 2019-05-31 09:01 | MORECARE ---
CASE MANAGEMENT DISCHARGE SUMMARY PATIENT: GAVIN SALVADOR UNIT: [id number] ADM DATE: 05/26/19 AGE: 73 : 46 SEX: F ROOM/BED: D.230 AUTHOR: GUS CARSON PHYSICIAN: REFERRING PHYSICIAN: HILARY MILLS MD DATE OF SERVICE: 05/31/19 Discharge Plan Patient Name: GAVIN SALVADOR Facility: [facility]:[place] : 1945 Planned Disposition: Anticipated Discharge Date: Discharge Date: 05/28/2019 Expected LOS: Initial Reviewer: [email or web address] Initial Review Date: 05/28/2019 Generated: 05/31/19 10:01 am Comments DCP- Discharge Planning Updated by [email or web address]: Dorothy Castillo on 05/28/19 11:[address] Patient Name: GAVIN SALVADOR Admission Status: ER Accout number: [id number] Admission Date: 05-26-2019 : 1945 Admission Diagnosis:HYPERTENSIVE HEART DISEASE WITH HEART FAILURE Attending: LING MILLS Current LOS: 2 Anticipated DC Date: Planned Disposition: Primary Insurance: MEDICARE A & B Discharge Planning Comments: CM MET WITH PATIENT BECAUSE SHE IS ON BIPAP. STATES HIS ISN'T DOING VERY WELL AND WOULD LIKE TO TALK WITH ME LATER. HE STATES DR MILLS IS COMING TO TALK TO HIM AND THEN HE CAN MEET WITH ME. CM WILL CHECK BACK WITH . HE IS VERY CONCERNED SHE MAY NOT MAKE IT THROUGH THE DAY. CM WILL CONTINUE TO FOLLOW AND ASSIST WITH DC PLANNING/NEEDS. Pulmonary Disease Specialist: Dorothy Castillo DCP- Discharge Planning Updated by [id number]: Irene Briggs on 05/28/19 8:[address] Patient Name: GAVIN SALVADOR Encounter No: [id number] : 1945 Primary Insurance: MEDICARE A & B Pulmonary Disease Specialist: : RENETTA Note: Continue BiPAP 15/8-60 percent FiO2, and titrate FiO2 down to keep SaO2 more than 92%. Bumex, and dobutamine drip. I doubt this is pneumonia, and I will discontinue antibiotics for now. Follow blood cultures, and pro-calcitonin. Elevated proBNP up to 29,000. DVT prophylaxis Cardiac catheter decision per cardiology once MICHELL improves. May need intubation and mechanical ventilation if above measures fail. PRN Ativan for anxiety D/w family at bedside Irene Briggs DCPIA - Discharge Planning Initial Assessment Updated by [email or web address]: Dorothy Castillo on 05/28/19 11:57 am * Is the patient Alert and Oriented? No * PCP [facility] * [facility] * Preadmission Environment Home with Family * List name and contact numbers for known caregivers / representatives who currently or will assist patient after discharge: COURT, , * Has this patient been hospitalized within the prior 30 days at any hospital? No Last DP export: 05/28/19 11:06 a Patient Name: GAVIN SALVADOR Page [phone] at 0901 All edits/amendments must be made on the electronic document DICTATION DATE: 05/31/19900 NOVELTY WORKER: LILIAN 05/31/19900 RPT#: [id number] DC DATE:05/28/19 STATUS: DIS IN [facility] [address] [place] [address] END OF REPORT
--- NOTE | 2019-05-31 18:38 | EC ---
PATIENT:GAVIN SALVADOR DATE OF SERVICE: 05/26/19 SEX: F MEDICAL RECORD: [id number] DATE OF : [birth year] LOCATION:[facility] D.230 AGE OF PATIENT: 73 ADMISSION DATE: 05/26/19 REFERRING PHYSICIAN: INTERPRETING PHYSICIAN: HILARY VILLALOBOS MD ECHOCARDIOGRAM REPORT ECHO CHARGES 4 ECHO COMPLETE Date: 05/27/19 CLINICAL DIAGNOSIS: CHF HX OF CAD/CABG ECHOCARDIOGRAPHIC MEASUREMENTS (adult normal given) AC root (d.<3.7cm) 3.1 cm LV Septum d (<1.2 cm> 1.3 cm Valve Excursion 1.8 cm LV Septum (systole) 1.5 cm Left Atria (s.<4.0cm> 4.8 cm LVPW d(<1.2cm) 1.1 cm RV (d.<2.3cm) 4.7 cm LVPW (sytole) 1.5 cm LV diastole(<5.6CM) 6.5 cm MV E-F(>70mm/sec) cm LV systole 4.5 cm LVOT Diameter 1.7 cm MV exc.(>10mm) 2.0 cm Est.ejection fraction (50-75%) % DOPPLER: LVIT cm/sec A 48.0 cm/sec E 93.0 cm/sec LA cm/sec RVSP 49 mmHg LVOT 116 cm/sec AOP1/2T m/s Asc. Ao 183 cm/sec RVOT 102 cm/sec RA cm/sec PA 160 cm/sec AV Gradient Peak 13.36mmHg AV Mean 7.33 mmHg AV Area 1.4 cm MV Gradient Peak 5.20 mmHg MV Mean 1.72 mmHg MV Area cm COMMENTS: Baby Counselor: Ethan ANN Show Host Or Hostess: [address] Dr. Villalobos TAPE# PAC Pericardial Effusion N DATE OF SERVICE: 05/27/2019 PROCEDURE: Echocardiogram. FINDINGS: 1. Left ventricular chamber size is mildly dilated. Left ventricular systolic function is moderately reduced, overall ejection fraction 35%. There is definite hypokinesis anteroseptally. 2. Left atrium is enlarged at 4.8 cm. Right atrium and right ventricular chamber sizes are as well moderately dilated. ECHOCARDIOGRAM REPORT [id number] GAVIN SALVADOR 3. Valvular structures have normal structure and motion. 4. Doppler interrogation reveals jdce-sn-vixtswyf mitral regurgitation, moderate tricuspid regurgitation, no other valvular insufficiency or stenosis. Pulmonary systolic pressure is estimated at 49 mmHg. 5. No evidence of pericardial effusion or left ventricular thrombus. TRANSINT:[id number] Voice Confirmation ID: [id number] DOCUMENT ID: [id number] HILARY VILLALOBOS MD at 1838 CC: [id number] DICTATION DATE: 05/27/19 1234 LEAD ASSISTANT MANAGER: 05/27/19 1241 DIS IN 05/28/19 [place] [id number] [place] [id number]
--- NOTE | 2019-05-31 18:38 | HP ---
PATIENT: GAVIN SOTELO MEDICAL RECORD: [id number] ACCOUNT: [id number] LOCATION:[facility] D.2308 : [birth year] ADMISSION DATE: 05/26/19 PCP: JOSHUA [facility] MD HISTORY AND PHYSICAL EXAMINATION DATE OF ADMIT: 05/26/2019 DIAGNOSES: 1. Shortness of breath, dyspnea on exertion, respiratory distress, congestive heart failure. 2. Ischemic cardiomyopathy. 3. Coronary artery disease. 4. Status post coronary artery bypass graft surgery. 5. Hypertension. 6. Hyperlipidemia. 7. Atrial fibrillation. HISTORY OF PRESENT ILLNESS: Mrs. Sotelo has had progressive shortness of breath, dyspnea on exertion for the past few days. It came to the point of respiratory distress today. She presents to the Emergency Room. Chest x-ray is with florid heart failure. She does have a cardiomyopathy, ejection fraction 30%. She has a history of coronary artery disease, status post coronary artery bypass graft surgery at [facility] in August of 2018. She has had chest pressure as well with the shortness of breath over the past few days. PHYSICAL EXAMINATION: GENERAL APPEARANCE: Well-nourished, well-developed, appears stated age. Level of distress, comfortable. PSYCHIATRIC: Mental status, alert, normal affect. Orientation, oriented to time, place and person. EYES: Lids and conjunctiva, noninjected. No discharge, no pallor. ENT: Lips, teeth, gums, normal dentition. Oropharynx, no cyanosis, no pallor. NECK: Carotid arteries, bilateral normal upstroke, no bruits, no thrills. JUGULAR VEINS: No jugular venous pressure or distention. CERVICAL LYMPH NODES: Nontender, nonenlarged. THYROID: Not enlarged. Nontender. No nodules. LUNGS: Respiratory effort, unlabored. CHEST: Normal curvature. No thoracic deformity. No chest wall tenderness. Percussion, resonant. Auscultation, clear. No wheezes, no rales, no rhonchi. CARDIOVASCULAR: Precordial exam, nondisplaced. No heaves or pericardial thrills. Rate and rhythm, regular. Heart sounds, normal S1, normal S2. No S3, no gallop, no rub. Systolic murmur, not heard. Diastolic murmur, not heard. EXTREMITIES: No cyanosis, no edema. Peripheral pulses, full and equal in all extremities, except as noted. No bruits appreciated. ABDOMEN: Soft, nondistended. Normal aorta. No bruit. Nontender. No masses. Liver, nontender, no hepatomegaly. Spleen, nontender, no splenomegaly. MUSCULOSKELETAL: No joint tenderness. No joint swelling. No erythema. NEUROLOGICAL: Normal gait, normal strength, normal tone. SKIN: Warm and dry. OVERALL IMPRESSION: Respiratory distress with congestive heart failure, pulmonary edema. She has already received IV Lasix. At this time, we will place her on dobutamine as well as Bumex drip, continuing her Entresto and beta blockade. Further care depends upon the results with her diuresis. HISTORY AND PHYSICAL [id number] GAVIN SOTELO TRANSINT:[id number] Voice Confirmation ID: [id number] DOCUMENT ID: [id number] HILARY MILLS MD at 1838 CC: [id number] DICTATION DATE: 05/26/19 161 CONCESSION CASHIER: 05/26/19 1629 DIS IN 05/28/19 [place] [id number] [place] [address]
--- NOTE | 2019-05-31 18:38 | OP ---
PATIENT NAME: GAVIN SALVADOR MEDICAL RECORD: [id number] :[birth year] LOCATION:[facility] D.2308 ADMISSION DATE:05/26/19 SURGEON: HILARY MILLS MD DATE OF OPERATION: 05/28/2019 PROCEDURES: 1. Left heart catheterization. 2. Selective coronary angiography. 3. Left ventriculogram. 4. Vein graft angiography. 5. MUNGUIA angiography. INDICATION: Angina and coronary artery disease. PROCEDURE IN DETAIL: After informed consent was obtained and after a detailed description of risks, benefits as well as alternative therapies, the patient elected to proceed with angiogram and angioplasty. The right femoral area was prepped and draped in normal sterile fashion. Right femoral artery was cannulated via modified Seldinger technique with placement of 5-Serbian sheath. All catheters exchanged through this sheath. FINDINGS: Left ventriculogram was performed in the standard 30-degree HURTADO view, reveals global hypokinesis throughout all segments. Overall ejection fraction 15% to 20%. SELECTIVE CORONARY ANGIOGRAPHY: 1. Left main is with no significant angiographic disease. 2. Left anterior descending is totally occluded. 3. Left circumflex is totally occluded. 4. Right coronary artery is totally occluded. 5. MUNGUIA to the LAD is widely patent. Distal LAD is widely patent. 6. Vein graft to the circumflex is widely patent. Distal circumflex is widely patent. 7. Vein graft to the RCA is widely patent. Distal RCA is widely patent. OVERALL IMPRESSION: Severe cardiomyopathy, patency of all grafts. Center medical management and treatment of the cardiomyopathy. TRANSINT:[id number] Voice Confirmation ID: [id number] DOCUMENT ID: [id number] HILARY MILLS MD at 1838 CC: [id number] DICTATION DATE: 05/28/19 1134 HEATING REPAIR TECHNICIAN: 05/28/19 1248 DIS IN 05/28/19 [place] [address] [place] [address]
== END 2019-05-28 12:42 ==
LOC: D.ER 15:59 → D.ICU 16:52 → D.CVICU 18:40 → D.ICU 19:06
PROVIDERS: Family Medicine; Internal Medicine Pulmonary Disease; ADMIT Internal Medicine Interventional Cardiology; ATTEND Internal Medicine Interventional Cardiology
PROC: B2151ZZ Fluoroscopy of Left Heart using Low Osmolar Contrast (ICD-10-PCS; 2019-05-28)
PROC: 4A023N7 Measurement of Cardiac Sampling and Pressure, Left Heart, Percutaneous Approach (ICD-10-PCS; 2019-05-28)
PROC: B2131ZZ Fluoroscopy of Multiple Coronary Artery Bypass Grafts using Low Osmolar Contrast (ICD-10-PCS; principal; 2019-05-28 10:49)
DX: I11.0 Hypertensive heart disease with heart failure (principal); J96.01 Acute respiratory failure with hypoxia; I21.4 Non-ST elevation (NSTEMI) myocardial infarction; N17.9 Acute kidney failure, unspecified; I50.23 Acute on chronic systolic (congestive) heart failure; E66.01 Morbid (severe) obesity due to excess calories; Z68.36 Body mass index [BMI] 36.0-36.9, adult; I48.91 Unspecified atrial fibrillation; E78.5 Hyperlipidemia, unspecified; I25.5 Ischemic cardiomyopathy; I25.119 Atherosclerotic heart disease of native coronary artery with unspecified angina pectoris